=== PATIENT | male | born 1930 | race Caucasian/White ===

== ENCOUNTER 2019-05-06 17:43 | Inpatient (IN) | payer OTHER ==
--- NOTE | 2019-05-06 18:17 | RAD REPORT ---
EXAM DESCRIPTION: RAD - Chest Single View - 05/06/2019 6:09 pm CLINICAL HISTORY: ams Chest pain. COMPARISON: No comparisons FINDINGS: Portable technique limits examination quality. Mild pulmonary edema. The heart is moderately enlarged in size. No displaced fractures. IMPRESSION: Mild CHF.
[2019-05-06] MEDS ORDERED: NA CHLORIDE 0.9% 3,000 ML ONE (18:30)
[2019-05-06 18:57] LABS: Absolute Lymphocytes (CBC) 0.3 K/uL (0.7-4.9); Basophils % 0.1 % (0-1.3); Hematocrit 38.6 % (39.6-49.0); Lymphocytes % 1.8 % (15.3-44.8); MPV 9.5 fL (7.6-11.3); RBC Red Blood Cell Count 4.22 M/uL (4.33-5.43)
[2019-05-06 18:58] LABS: Protime INR 1.09
[2019-05-06 19:20] LABS: Urine Blood TRACE (NEG); Urine Glucose NEGATIVE (NEG); Urine Protein NEGATIVE (NEG)
[2019-05-06 19:20] LABS: Urine Bacteria NONE SEEN /HPF (NONE SEEN); Urine Culture Reflex Order NOT NEEDED; Urine RBC <5 /HPF (NONE SEEN)
--- NOTE | 2019-05-06 19:37 | RAD REPORT ---
EXAM DESCRIPTION: US - Extremity Venous Uni Ltd - 05/06/2019 7:31 pm CLINICAL HISTORY: SWELLING Leg swelling and edema. COMPARISON: <Comparisons> FINDINGS: Right lower extremity venous system was interrogated with Doppler technique. Normal flow, compressibility and augmentation was noted. There is no DVT present. IMPRESSION: No evidence of right lower extremity deep venous thrombosis.
[2019-05-06 19:43] LABS: ALT/SGPT 15 U/L (12-78); AST/SGOT 25 U/L (15-37); Albumin 3.9 g/dL (3.4-5.0); Alkaline Phosphatase 92 U/L (45-117); BUN Blood Urea Nitrogen 11 mg/dL (7-18); Bicarbonate 24 mmol/L (21-32); Bilirubin Direct 0.6 mg/dL (0-0.2); Bilirubin Total 2.2 mg/dL (0.2-1.0); Creatine Phosphokinase 247 U/L (39-308); Glucose Level 109 mg/dL (74-106); Lipase 75 U/L (73-393); Potassium 3.5 mmol/L (3.5-5.1); Troponin (Emerg Dept Use Only) 0.02 ng/mL (0.0-0.045)
[2019-05-06 19:53] LABS: Sodium Level 115 mmol/L (136-145)
--- NOTE | 2019-05-06 20:24 | RAD REPORT ---
EXAM DESCRIPTION: CTAbdomen Pelvis W Contrast - 05/06/2019 8:13 pm CLINICAL HISTORY: Abdominal pain. ABD PAIN COMPARISON: No comparisons TECHNIQUE: Biphasic CT imaging of the abdomen and pelvis was performed with 100 ml non-ionic IV cont rast. All CT scans are performed using dose optimization technique as appropriate and may include automated exposure control or mA/KV adjustment according to patient size. FINDINGS: Small hiatal hernia.Small bilateral pleural effusions. The liver, spleen, pancreas, adrenal glands and kidneys are within normal limits. Small cysts are pre sent in both kidneys. No bowel obstruction, free air, free fluid or abscess. Sigmoid diverticulosis coli. The appendix is n ormal. Bilateral fat containing inguinal hernias. No evidence of significant lymphadenopathy. No suspicious bony findings. Hoffman catheter. IMPRESSION: No acute intra-abdominal or pelvic finding. Sigmoid diverticulosis.
--- NOTE | 2019-05-06 20:49 | ER ---
Nurse's Notes [facility] Name: Bashir Son Age: 88 yrs Sex: Male : 1930 Arrival Date: 05/06/2019 Time: 17:46 Bed 6 Private MD: Diagnosis: Hypo-osmolality and hyponatremia;Altered mental status, unspecified Presentation: 05/06 17:48 Presenting complaint: EMS states: AMS worsening today, possible UTI. Transition of iw care: patient was not received from another setting of care. Onset of symptoms was May 06, 2019. Risk Assessment: Do you want to hurt yourself or someone else? Patient reports no desire to harm self or others. Care prior to arrival: IV initiated. 20 GA, in the left antecubital area, Glucose check: 103. 17:48 Method Of Arrival: EMS: [facility] iw 17:48 Acuity: OFELIA 3 iw 19:15 Initial Sepsis Screen: Does the patient meet any 2 criteria? Altered Mental Status. Yes rr5 Does the patient have a suspected source of infection? No. Patient's initial sepsis screen is negative. Historical: - Allergies: 17:50 No Known Allergies; iw - PMHx: 17:49 BPH; Glaucoma; iw - Immunization history:: Adult Immunizations unknown. - Social history:: Smoking status: unknown. - Ebola Screening: : Patient negative for fever greater than or equal to 101.5 degrees Fahrenheit, and additional compatible Ebola Virus Disease symptoms Patient denies exposure to infectious person Patient denies travel to an Ebola-affected area in the 21 days before illness onset No symptoms or risks identified at this time. Screenin:34 Abuse screen: Denies threats or abuse. Denies injuries from another. Nutritional ss screening: No deficits noted. Tuberculosis screening: No symptoms or risk factors identified. Fall Risk IV access (20 points). Assessment: 18:00 General: Appears uncomfortable, Behavior is restless, uncooperative. Pain: Unable to iw use pain scale. Patient appears restless. Neuro: Level of Consciousness is awake, alert, Oriented to none Moves all extremities. Cardiovascular: Capillary refill < 3 seconds in bilateral fingers Patient's skin is warm and dry. Respiratory: Respiratory effort is even, unlabored, Respiratory pattern is regular, symmetrical. GI: Abdomen is non-distended. Derm: Skin is intact, is thin. Musculoskeletal: Range of motion: intact in all extremities. 19:15 General: Appears in no apparent distress. uncomfortable, Behavior is restless, rr5 uncooperative, tremors noted. patient pulling out contraptions. Pain: Unable to use pain scale. Patient is disoriented. Patient appears restless. Neuro: Level of Consciousness is awake, alert, Oriented to none Moves all extremities. Cardiovascular: Capillary refill < 3 seconds Patient's skin is warm and dry. Respiratory: Airway is patent Respiratory effort is even, unlabored, Respiratory pattern is regular, symmetrical. GI: Abdomen is non-distended. : Urine is clear. EENT: No signs and/or symptoms were reported regarding the EENT system. Derm: Skin is intact, is fragile, is thin. Musculoskeletal: Capillary refill < 3 seconds. 19:25 Reassessment: Patient appears in no apparent distress at this time. ultrasound at rr5 bedside. 20:25 Reassessment: NS fluid bolus discontinue and regulated at 75 ml/hr as ordered by ED rr5 provider. to replace the Na level gradually. 21:30 Reassessment: patient removing the panel monitor electrodes. IV cannula secured. rr5 family member at bedside vital signs taken and recorded. 21:59 Reassessment: patient needs to do CT scan at 2330H before sending up. as per ED rr5 provider, charge nurse informed. 22:00 Reassessment: Patient appears in no apparent distress at this time. Patient and/or rr5 family updated on plan of care and expected duration. Pain level reassessed. 23:12 Reassessment: Patient came back from CT scan department, awaiting result. cc3 05/07 00:15 Reassessment: ABHIJIT Rahman explained to the patient's family the need for central line cc3 insertion, they agreed and consent form signed by the patient's . 01:00 Reassessment: Patient appears in no apparent distress at this time. vitally stable. rr5 02:05 Reassessment: Patient appears in no apparent distress at this time. No changes from rr5 previously documented assessment. central line inserted by dr. davis aseptically. Vital Signs: 05/06 17:50 BP 155 / 110; Pulse 100; Resp 20 S; Temp 97.9(TE); Pulse Ox 95% on R/A; iw 18:29 Weight 97.52 kg (R); iw 19:17 jp3 19:19 BP 162 / 105; Pulse 99; Resp 22; Temp 98; Pulse Ox 99% ; rr5 20:32 BP 151 / 87; Pulse 100; Resp 22 S; Pulse Ox 94% on R/A; cc3 21:00 BP 167 / 67; Pulse 80; Resp 20 S; Pulse Ox 96% on R/A; cc3 22:00 BP 145 / 85; Pulse 79; Resp 19; Pulse Ox 98% on R/A; rr5 23:34 BP 117 / 91; Pulse 66; Resp 20 S; Pulse Ox 97% on R/A; cc3 10/ 01:10 BP 142 / 95; Pulse 79; Resp 18; Pulse Ox 99% ; rr5 02:10 BP 140 / 100; Pulse 69; Resp 20; Temp 98.1; Pulse Ox 99% ; rr5 05/06 19:17 BLOOD Sugar was 125 \T\ 1815 jp3 Juan Coma Score: 19:19 Eye Response: spontaneous(4). Verbal Response: confused(4). Motor Response: obeys rr5 commands(6). Total: 14. 20:32 Eye Response: spontaneous(4). Verbal Response: confused(4). Motor Response: localizes rr5 pain(5). Total: 13. 21:00 Eye Response: spontaneous(4). Verbal Response: confused(4). Motor Response: obeys rr5 commands(6). Total: 14. 22:00 Eye Response: spontaneous(4). Verbal Response: confused(4). Motor Response: obeys rr5 commands(6). Total: 14. 23:34 Eye Response: spontaneous(4). Verbal Response: confused(4). Motor Response: obeys rr5 commands(6). Total: 14. /03 01:10 Eye Response: spontaneous(4). Verbal Response: confused(4). Motor Response: localizes rr5 pain(5). Total: 13. 02:10 Eye Response: spontaneous(4). Verbal Response: confused(4). Motor Response: obeys rr5 commands(6). Total: 14. ED Course: 05/06 17:46 Patient arrived in ED. iw 17:49 Triage completed. iw 17:50 Arm band placed on. iw 17:59 [facility] snw 17:59 Slick Friedman MD is Attending Physician. snw 18:00 Patient has correct armband on for positive identification. panel monitor on. Pulse ss ox on. NIBP on. 18:09 Chest Single View XRAY In Process Unspecified. EDMS 18:15 Initial lab(s) drawn, by me, sent to lab. First set of blood cultures drawn. jp3 18:30 Second set of blood cultures drawn by me, Urine collected: Hoffman catheter specimen, jp3 clear, lo colored, Amount Returned: 700mL T\T\S collected, blood band applied to patient. 18:30 Hoffman cath inserted, using sterile technique, 16 Fr., by me, balloon inflated, to jp3 gravity drainage, urine specimen collected. returned lo urine. Patient tolerated well. 18:35 No provider procedures requiring assistance completed. Maintain EMS IV. Dressing ca1 intact. Good blood return noted. Site clean \T\ dry. Gauge \T\ site: G20 LAC. 18:40 Radiology exam delayed due to lab results not completed at this time. (BUN/Creatinine). vm2 19:04 Jagdish Bui, RN is Primary Nurse. rr5 19:13 Patient maintains SpO2 saturation greater than 95% on room air. jp3 19:15 Bed in low position. Call light in reach. Side rails up X 1. Side rails up X2. Warm jp3 blanket given. Pillow given. Verbal reassurance given. 19:31 Radiology exam delayed due to lab results not completed at this time. (BUN/Creatinine). vm2 19:32 US Extremity Venous Unilateral Ltd In Process Unspecified. EDMS 19:43 Radiology exam delayed due to lab results not completed at this time. (BUN/Creatinine). vm2 20:14 CT Abd/Pelvis - IV Contrast Only In Process Unspecified. EDMS 20:14 CT completed. Pt tolerated procedure poorly. Patient moved to CT via stretcher. Patient nj moved back from CT. 20:47 David Harmon DO is Hospitalizing Provider. snw 23:14 CT Head Brain wo Cont: to be done at 2330 In Process Unspecified. EDMS 05/07 02:05 Accessed right femoral catheter [address] davis aseptically using rr5 ultrasound guided. 02:05 Assisted provider with central line placement. Set up central line tray. Triple lumen rr5 line placed in right femoral. Line placed by Edwin Davis MD Placement verified by blood return, Dressed with Tegaderm, Patient tolerated well. Before procedure, did Practitioner(s) obtain informed consent? Patient \T\ family education about procedure, CLABSI prevention and S/S of infection? Yes. Time-out/Briefing performed prior to start of procedure? Yes. Was handwashing/sanitizing done immediately prior to procedure? Yes. Was patient positioned to in a way to prevent air embolism? Yes. Was procedure site sterilized? Yes, with Was the site allowed to dry? Yes. During the procedure, did the Practitioner(s) maintain a sterile field? Yes. Were unused ports clamped during insertion? Yes. Was a 2nd qualified MD obtained after 3 unsuccessful insertion attempts? No. Was blood aspirated from each lumen? Yes. After the procedure, did the Practitioner(s) clean the site and apply a sterile dressing? Yes. 02:50 Patient admitted, IV remains in place. intact, No redness/swelling at site. rr5 Administered Medications: 05/06 18:35 Drug: NS 0.9% (30 ml/kg) 30 ml/kg Route: IV; Rate: bolus; Site: left antecubital; ca1 20:28 Follow up: Response: No adverse reaction; IV Status: Order to discontinue infusion; IV rr5 Intake: 1000ml ; for sodium replacement gradually. IVF decrease to 75ml/hr. 20:33 Drug: NS 0.9% 1000 ml Route: IV; Rate: 75 ml/hr; Site: right forearm; rr5 Intake: 20:28 IV: 1000ml; Total: 1000ml. rr5 Outcome: 20:48 Decision to Hospitalize by Provider. snw 05/07 02:40 Admitted to ICU accompanied by nurse, room 3, with chart, Report called to estrada taylor 02:40 Condition: stable rr5 02:40 Instructed on the need for admit. 02:51 Patient left the ED. rr5 Signatures: Dispatcher [employer] EDMS Lacey Bacon, [employer] WORKER-C [employer] WORKER-Csnw Olinda Tipton RN RN iw Smirch, Shelby, RN RN ss Jordan, Nathan nj McGuire, Victoria vm2 Pisarski, Jacob jp3 Cordel Anushka cc3 Jagdish Bui, RN RN rr5 Theodora Carranza RN RN ca1 Corrections: (The following items were deleted from the chart) 05/06 18:42 18:00 General: Appears uncomfortable, Behavior is restless, uncooperative, [facility] 18:42 18:00 Pain: Unable to use pain scale. Patient appears restless, [facility] 18:42 18:00 Neuro: Level of Consciousness is awake, alert, Oriented to none Moves all iw extremities. 18:42 18:00 Cardiovascular: Capillary refill < 3 seconds in bilateral fingers Patient's skin iw is warm and dry. 18:42 18:00 Respiratory: Respiratory effort is even, unlabored, Respiratory pattern is iw regular, symmetrical, 18: 18:00 GI: Abdomen is non-distended, [facility] 18:42 18:00 Derm: Skin is intact, is thin, [facility] 18:42 18:00 Musculoskeletal: Range of motion: intact in all extremities, iw 19:20 19:15 General: Appears in no apparent distress. uncomfortable, Behavior is restless, rr5 uncooperative, tremors noted.. rr5
--- NOTE | 2019-05-06 20:50 | EDPHYS ---
Physician Documentation [facility] Name: Bashir Son Age: 88 yrs Sex: Male : 1930 Arrival Date: 05/06/2019 Time: 17:46 Bed 6 Private MD: ED Physician Slick Friedman HPI: 05/06 20:50 This 88 yrs old Male presents to ER via EMS with complaints of Altered Mental snw Status. 20:50 The patient presents with agitation, confusion, disorientation. Onset: The snw symptoms/episode began/occurred gradually, 3 day(s) ago, and became worse. Possible causes: Spouse suspects UTI. Associated signs and symptoms: The patient has no apparent associated signs or symptoms. Current symptoms: In the emergency department the patient's symptoms are unchanged from the initial presentation. Patient's baseline: Neuro: alert and fully oriented, Motor: no deficits. The patient has experienced a previous episode, last year. It is unknown whether or not the patient has recently seen a physician. Historical: - Allergies: 17:50 No Known Allergies; iw - PMHx: 17:49 BPH; Glaucoma; iw - Immunization history:: Adult Immunizations unknown. - Social history:: Smoking status: unknown. - Ebola Screening: : Patient negative for fever greater than or equal to 101.5 degrees Fahrenheit, and additional compatible Ebola Virus Disease symptoms Patient denies exposure to infectious person Patient denies travel to an Ebola-affected area in the 21 days before illness onset No symptoms or risks identified at this time. ROS: 20:51 Eyes: Negative for injury, pain, redness, and discharge, ENT: Negative for injury, snw pain, and discharge, Neck: Negative for injury, pain, and swelling, Cardiovascular: Negative for chest pain, palpitations, and edema, Respiratory: Negative for shortness of breath, cough, wheezing, and pleuritic chest pain, Abdomen/GI: Negative for abdominal pain, nausea, vomiting, diarrhea, and constipation, Back: Negative for injury and pain, : Negative for injury, bleeding, discharge, and swelling, MS/Extremity: Negative for injury and deformity, Skin: Negative for injury, rash, and discoloration. 20:51 Constitutional: Positive for AMS. 20:51 Neuro: Positive for altered mental status, dizziness. Exam: 17:55 Head/Face: Normocephalic, atraumatic. Eyes: Pupils equal round and reactive to light, snw extra-ocular motions intact. Lids and lashes normal. Conjunctiva and sclera are non-icteric and not injected. Cornea within normal limits. Periorbital areas with no swelling, redness, or edema. ENT: Nares patent. No nasal discharge, no septal abnormalities noted. Tympanic membranes are normal and external auditory canals are clear. Oropharynx with no redness, swelling, or masses, exudates, or evidence of obstruction, uvula midline. Mucous membranes moist. Neck: Trachea midline, no thyromegaly or masses palpated, and no cervical lymphadenopathy. Supple, full range of motion without nuchal rigidity, or vertebral point tenderness. No Meningismus. Chest/axilla: Normal chest wall appearance and motion. Nontender with no deformity. No lesions are appreciated. Cardiovascular: Regular rate and rhythm with a normal S1 and S2. No gallops, murmurs, or rubs. Normal PMI, no JVD. No pulse deficits. Respiratory: Lungs have equal breath sounds bilaterally, clear to auscultation and percussion. No rales, rhonchi or wheezes noted. No increased work of breathing, no retractions or nasal flaring. 17:55 Back: No spinal tenderness. No costovertebral tenderness. Full range of motion. Skin: Warm, dry with normal turgor. Normal color with no rashes, no lesions, and no evidence of cellulitis. 17:55 Constitutional: The patient appears awake, obese, restless, uncomfortable. 17:55 Abdomen/GI: Inspection: abdomen appears normal, Bowel sounds: normal, Palpation: moderate abdominal tenderness, in the right lower quadrant. 17:55 Musculoskeletal/extremity: Extremities: right lower ext with mild edema, Circulation is intact in all extremities. Sensation intact. 17:55 Neuro: Orientation: Not oriented to person, place, time, situation, Mentation: unable to follow commands, Memory: unable to test, Motor: strength is 5/5 in all extremities, Gait: not tested. seizure activity, is not displayed by the patient. Vital Signs: 17:50 BP 155 / 110; Pulse 100; Resp 20 S; Temp 97.9(TE); Pulse Ox 95% on R/A; iw 18:29 Weight 97.52 kg (R); iw 19:17 jp3 19:19 BP 162 / 105; Pulse 99; Resp 22; Temp 98; Pulse Ox 99% ; rr5 20:32 BP 151 / 87; Pulse 100; Resp 22 S; Pulse Ox 94% on R/A; cc3 21:00 BP 167 / 67; Pulse 80; Resp 20 S; Pulse Ox 96% on R/A; cc3 22:00 BP 145 / 85; Pulse 79; Resp 19; Pulse Ox 98% on R/A; rr5 23:34 BP 117 / 91; Pulse 66; Resp 20 S; Pulse Ox 97% on R/A; cc3 05/07 01:10 BP 142 / 95; Pulse 79; Resp 18; Pulse Ox 99% ; rr5 02:10 BP 140 / 100; Pulse 69; Resp 20; Temp 98.1; Pulse Ox 99% ; rr5 05/06 19:17 BLOOD Sugar was 125 \T\ 1815 jp3 [place] Coma Score: 19:19 Eye Response: spontaneous(4). Verbal Response: confused(4). Motor Response: obeys rr5 commands(6). Total: 14. 20:32 Eye Response: spontaneous(4). Verbal Response: confused(4). Motor Response: localizes rr5 pain(5). Total: 13. 21:00 Eye Response: spontaneous(4). Verbal Response: confused(4). Motor Response: obeys rr5 commands(6). Total: 14. 22:00 Eye Response: spontaneous(4). Verbal Response: confused(4). Motor Response: obeys rr5 commands(6). Total: 14. 23:34 Eye Response: spontaneous(4). Verbal Response: confused(4). Motor Response: obeys rr5 commands(6). Total: 14. 05/07 01:10 Eye Response: spontaneous(4). Verbal Response: confused(4). Motor Response: localizes rr5 pain(5). Total: 13. 02:10 Eye Response: spontaneous(4). Verbal Response: confused(4). Motor Response: obeys rr5 commands(6). Total: 14. MDM: 05/06 18:00 Patient medically screened. snw 20:46 Data reviewed: vital signs, nurses notes. Data interpreted: Pulse oximetry: on room air snw is 99 %. Interpretation: normal. Counseling: I had a detailed discussion with the patient and/or guardian regarding: the historical points, exam findings, and any diagnostic results supporting the discharge/admit diagnosis, the presence of at least one elevated blood pressure reading (>120/80) during this emergency department visit, lab results, radiology results, the need for further work-up and treatment in the hospital. Physician consultation: David Harmon DO was called at 20:47, was contacted at 20:47, regarding admission, to the ICU. 21:49 ED course: unable to CT scan brain until 2330 to allow contrast to clear. snw 05/06 17:59 Order name: T\T\S; Complete Time: 20:20 snw 05/06 17:59 Order name: Basic Metabolic Panel; Complete Time: 20:20 snw 05/06 17:59 Order name: Blood Culture Adult (2) snw 05/06 17:59 Order name: CBC with Diff; Complete Time: 00:07 snw 05/06 17:59 Order name: Ckmb; Complete Time: 20:20 snw 05/06 17:59 Order name: CPK; Complete Time: 20:20 snw 05/06 17:59 Order name: Lactate; Complete Time: 19:45 snw 05/06 17:59 Order name: LFT's; Complete Time: 20:20 snw 05/06 17:59 Order name: Lipase; Complete Time: 20:20 snw 05/06 17:59 Order name: Procalcitonin; Complete Time: 20:20 snw 05/06 17:59 Order name: Protime (+inr); Complete Time: 19:22 snw 05/06 17:59 Order name: Ptt, Activated; Complete Time: 19:22 snw 05/06 17:59 Order name: Troponin (emerg Dept Use Only); Complete Time: 20:20 snw 05/06 17:59 Order name: Urine Microscopic Only; Complete Time: 19:22 snw 05/06 17:59 Order name: Flu; Complete Time: 19:32 snw 05/06 18:51 Order name: Urine Dipstick--Ancillary (enter results); Complete Time: 19:22 gm 05/06 19:25 Order name: NOVA; Complete Time: 20:23 rr5 05/06 20:18 Order name: ABO/RH no charge; Complete Time: 21:00 EDMS 05/06 20:46 Order name: Urine Osmolality; Complete Time: 23:23 snw 05/06 20:46 Order name: Urine Sodium Random; Complete Time: 22:10 snw 05/06 20:46 Order name: Osmolality, Serum; Complete Time: 22:28 snw 05/06 20:46 Order name: Chem 7; Complete Time: 22:37 snw 05/06 20:46 Order name: BNP; Complete Time: 22:37 snw 05/06 22:10 Order name: Cortisol EDMS 05/06 22:10 Order name: UR POTASSIUM EDMS 05/06 22:10 Order name: UR SODIUM EDMS 05/06 22:10 Order name: Osmolality, Urine EDMS 05/06 22:10 Order name: Thyroid Stimulating Hormone EDMS 05/06 22:10 Order name: Urinalysis EDMS 05/06 22:10 Order name: Uric Acid EDMS 05/06 17:59 Order name: FSBS; Complete Time: 19:12 snw 05/06 17:59 Order name: Cath; Complete Time: 18:49 snw 05/06 17:59 Order name: Chest Single View XRAY; Complete Time: 18:21 snw 05/06 17:59 Order name: Accucheck; Complete Time: 18:49 snw 05/06 17:59 Order name: Cardiac monitoring; Complete Time: 19:11 snw 05/06 17:59 Order name: EKG - Nurse/Tech; Complete Time: 19:11 snw 05/06 17:59 Order name: IV Saline Lock - Large Bore; Complete Time: 18:35 snw 05/06 18:39 Order name: US Extremity Venous Unilateral Ltd; Complete Time: 19:45 snw 05/06 18:39 Order name: CT Abd/Pelvis - IV Contrast Only; Complete Time: 20:29 snw 05/06 22:02 Order name: CT Head Brain wo Cont: to be done at 2330 snw 05/06 22:10 Order name: Magnesium EDMS 05/06 22:10 Order name: Magnesium EDMS 05/06 22:10 Order name: Magnesium EDMS 05/06 22:10 Order name: Magnesium EDMS 05/06 22:10 Order name: Magnesium EDMS 05/06 22:10 Order name: Magnesium EDMS 05/06 22:10 Order name: Osmolality, Serum EDMS 05/06 22:10 Order name: Osmolality, Serum EDMS 05/06 22:10 Order name: Osmolality, Serum EDMS 05/06 22:10 Order name: Osmolality, Serum EDMS 05/06 22:10 Order name: Osmolality, Serum EDMS 05/06 22:10 Order name: Osmolality, Serum EDMS 05/06 22:10 Order name: Renal Panel EDMS 05/06 22:10 Order name: Renal Panel EDMS 05/06 22:10 Order name: Renal Panel EDMS 05/06 22:10 Order name: Renal Panel EDMS 05/06 22:10 Order name: Renal Panel EDMS 05/06 22:10 Order name: Renal Panel EDMS 05/06 23:16 Order name: Manual Differential; Complete Time: 00:07 EDMS 05/07 00:39 Order name: Social Service Consult EDMS 05/06 17:59 Order name: Labs collected and sent; Complete Time: 18:35 snw 05/06 17:59 Order name: O2 Per Protocol; Complete Time: 18:35 snw 05/06 17:59 Order name: O2 Sat Monitoring; Complete Time: 18:35 snw 05/06 17:59 Order name: Urine Dipstick-Ancillary (obtain specimen); Complete Time: 18:49 snw 05/06 18:03 Order name: Hoffman: criticore; Complete Time: 18:49 snw Administered Medications: 18:35 Drug: NS 0.9% (30 ml/kg) 30 ml/kg Route: IV; Rate: bolus; Site: left antecubital; ca1 20:28 Follow up: Response: No adverse reaction; IV Status: Order to discontinue infusion; IV rr5 Intake: 1000ml ; for sodium replacement gradually. IVF decrease to 75ml/hr. 20:33 Drug: NS 0.9% 1000 ml Route: IV; Rate: 75 ml/hr; Site: right forearm; rr5 Disposition: 05/06/19 20:48 Hospitalization ordered by David Harmon for Inpatient Admission. Preliminary diagnosis are Hypo-osmolality and hyponatremia, Altered mental status, unspecified. - Bed requested for Intensive Care Unit. - Status is Inpatient Admission. rr5 - Condition is Fair. - Problem is an acute exacerbation. - Symptoms are unchanged. UTI on Admission? No Addendum: 05/09/2019 07:02 Co-signature as Attending Physician, Slick Friedman MD. r n Signatures: Dispatcher [employer] EDLacey Mast, [facility] MANAGER-[employer] Olinda Tipton, RN RN Slick Friedman MD MD rn Garcia, Cindy, RN RN cg Jagdish Bui, RN RN rr5 Acob, Theodora RN RN ca1 Corrections: (The following items were deleted from the chart) 05/07 00:51 05/06 20:48 Hospitalization Ordered by [facility] for Inpatient Admission. cg Preliminary diagnosis is Hypo-osmolality and hyponatremia; Altered mental status, unspecified. Bed requested for Intensive Care Unit. Status is Inpatient Admission. Condition is Fair. Problem is an acute exacerbation. Symptoms are unchanged. UTI on Admission? No. snw 05/07 02:51 00:51 05/06/2019 20:48 [facility]r5 [facility]. Preliminary diagnosis is Hypo-osmolality and hyponatremia; Altered mental status, unspecified. Bed requested for Intensive Care Unit. Status is Inpatient Admission. Condition is Fair. Problem is an acute exacerbation. Symptoms are unchanged. UTI on Admission? No. cg
[2019-05-06 22:25] LABS: BUN Blood Urea Nitrogen 11 mg/dL (7-18); Bicarbonate 22 mmol/L (21-32); Glucose Level 103 mg/dL (74-106); NT PRO-BNP 4980 pg/mL (<450); Potassium 3.3 mmol/L (3.5-5.1)
[2019-05-06 22:35] LABS: Sodium Level 116 mmol/L (136-145)
[2019-05-07] LABS: Blood Morphology Comment NOT SEEN (NOT SEEN); Platelet Estimate ADEQ
--- NOTE | 2019-05-07 00:30 | P.HP ---
Certification for Inpatient Patient admitted to: Inpatient With expected LOS: >2 Midnights Patient will require the following post-hospital care: [facility] Practitioner: I am a practitioner with admitting privileges, knowledge of patient current condition, hospital course, and medical plan of care. Services: Services provided to patient in accordance with Admission requirements found in Title 42 Section 412.3 of the Code of Federal Regulations Patient History Date of Service: 05/07/19 Primary Care Provider: Dr. Beckett Reason for admission: Altered mental status History of Present Illness: 88-year-old male presented to the emergency room with altered mental status. Patient with history of depression and chronic pain. Most of the information came from the and daughter. Both present at bedside. The daughter reports that the patient had been hospitalized in [facility] last [place] for hyponatremia. The patient was there for about a week and then went to rehab. Since that time, patient has been declining in health. Increase memory loss and behavioral disturbances have been noted. Patient was to follow up with his PCP but he did not. Patient takes Celexa and gabapentin. Daughter reports that the patient is likely not taking his medication. Daughter also reports that the patient requires more help than normal. Patient has home health. Daughter has been considering long-term placement for the patient and . Most recently over the last 3 days patient has had altered mental status changes. Patient does not appear appropriate or talking. No mention of fever, chills, chest pain or shortness of breath. No diarrhea noted. No other information provided. In the ER patient was evaluated. Patient found to be severely hypernatremic with a sodium of 115. Potassium 3.5, chloride 79, BUN of 11, creatinine 0.78 with a GFR of 79. Glucose 109. White count 16.3, hemoglobin 13.6. Platelet count of 287. Troponin unremarkable. Pro calcitonin unremarkable. Total bilirubin 2.2 with a direct bilirubin of 0.6. Urinalysis unremarkable. Chest x -ray showed mild volume overload. CT abdomen was unremarkable. CT head also unremarkable. Patient was given IV fluid in the emergency room. Patient admitted to ICU. When I saw the patient in the ER, patient appeared with altered mental status state. Patient not appropriate her able to provide history. Patient appeared stable. AFib noted on telemetry. Rate controlled. Blood pressure stable. Family is unsure were if AFib is chronic. As mentioned above patient has poor memory. Daughter concerned that he is not eating appropriately. does not report any excessive drinking. Allergies No Known Allergies Allergy (Unverified 09/15/17 23:14) Home medications list reviewed: Yes - Past Medical/Surgical History Diabetic: No -: Depression -: Chronic pain -: Cholecystectomy Psychosocial/ Personal History: Patient , lives at home. is the main caregiver. - Family History Family History: Reviewed- Non-Contributory - Social History Smoking Status: Never smoker Alcohol use: No CD- Drugs: No Caffeine use: No Place of Residence: Home Review of Systems General: Weakness, As per HPI Eyes: Unremarkable ENT: Unremarkable Respiratory: Unremarkable Cardiovascular: Unremarkable Gastrointestinal: Unremarkable Genitourinary: Unremarkable Musculoskeletal: Unremarkable Integumentary: Unremarkable Neurological: Weakness, Numbness, Confusion, As per HPI Lymphatics: Unremarkable Physical Examination - Physical Exam General: Alert, In no apparent distress, Demented (Patient appears demented), Confused, Other (Very little cooperation noted with instruction) HEENT: Atraumatic, Normocephalic, Other (Dry mucous membranes) Neck: Supple Respiratory: Clear to auscultation bilaterally, Normal air movement Cardiovascular: Irregular heart rate/rhythm (Atrial fibrillation, rate controlled) Gastrointestinal: Normal bowel sounds, Soft and benign, Non-distended, No tenderness, No masses, No rebound, No guarding Musculoskeletal: No contractures, No erythema, No tenderness, No warmth Integumentary: No tenderness/swelling, No erythema, No warmth, No cyanosis Neurological: Normal strength at 5/5 x4 extr, Normal tone, Dementia - Studies Laboratory Data (last 24 hrs) 05/06/19 21:35: Sodium 116 L*, Potassium 3.3 L, BUN 11, Creatinine 0.68, Glucose 103 05/06/19 18:00: PT 12.8 H, INR 1.09, APTT 29.0 05/06/19 18:00: WBC 16.3 H, Hgb 13.6, Hct 38.6 L, Plt Count 287 05/06/19 18:00: Sodium 115 L*, Potassium 3.5, BUN 11, Creatinine 0.78, Glucose 109 H, Total Bilirubin 2.2 H, AST 25, ALT 15, Alkaline Phosphatase 92, Lipase 75 Microbiology Data (last 24 hrs): 05/06/19 18:12 Nasopharnyx Influenza Type A Antigen Screen - Final 05/06/19 18:12 Nasopharnyx Influenza Type B Antigen Screen - Final Assessment and Plan - Plan Impression Altered mental status likely related to severe hyponatremia, etiology unknown Atrial fibrillation, likely chronic Depression Suspect underlying vascular dementia Leukocytosis Plan: Altered mental status likely related to severe hyponatremia, etiology unknown: Patient admitted to ICU for further evaluation and treatment. Spoke in detail with nephrology. Will start 3% solution and monitor electrolytes closely. Nephrology to monitor and adjust IV fluids. Will need to adjust hyponatremia slowly. Central line to be placed. Will order echocardiogram, carotid Doppler , stroke protocol MRI to further evaluate. Will need to rule out CVA. Will also consult cardiology and neurology for further evaluation and recommendation. Patient with AFib likely chronic with suspected underlying vascular dementia. Will start Lovenox at 1 milligram/kilograms subcu twice daily. Will provide IV metoprolol to maintain blood pressure and heart rate control. Will continue to reassess and monitor closely. Daytime hospitalist will continue his care. Anticipate discharge within the next 3-5 days with clinical improvement. Patient will likely require skilled placement then likely long-term placement. Advanced directives address in detail. Patient is do not resuscitate. Atrial fibrillation, likely chronic: Suspect AFib as chronic. Will start Lovenox at 1 milligram/kilogram subcu twice daily. Cardiology consulted. Obtain echocardiogram. Will provide metoprolol IV for blood pressure and heart rate control. Await further recommendation from Cardiology. Depression: Will hold Celexa at this time. Suspect underlying vascular dementia: Will obtain echocardiogram, carotid Doppler and stroke protocol MRI to further evaluate. Neurology consulted to further address. Will provide folic acid. Will check fasting lipid panel. Will check tsh. Continue to monitor closely. Leukocytosis: Etiology unknown. Urinalysis unremarkable. No evidence of pneumonia noted unremarkable. Pro calcitonin negative. Will continue to monitor closely. Will obtain blood cultures. No need for antibiotic therapy at this time. Discharge Plan: Half-Way Plan to discharge in: Greater than 2 days - Advance Directives Does patient have a Living Will: No Does patient have a Durable POA for Healthcare: No - Code Status/Comfort Care Code Status Assessed: Yes (Patient is do not resuscitate) Time Spent Managing Pts Care (In Minutes): 65
[2019-05-07] MEDS ORDERED: METOPROLOL TARTRATE 5 MG/5 ML INJ IV PRN (02:25)
[2019-05-07] MEDS ORDERED: ONDANSETRON 4 MG/2 ML VIAL IV PRN (02:25)
[2019-05-07] MEDS ORDERED: ACETAMINOPHEN 500 MG TAB PO PRN (02:25)
[2019-05-07] MEDS ORDERED: ACETAMINOPHEN 650MG/RECT SUPP RECT PRN (02:25)
[2019-05-07] MEDS ORDERED: NA CHLORIDE 3% 500 ML IV SCH (03:41)
[2019-05-07 05:58] LABS: Urine Appearance CLEAR; Urine Bilirubin NEGATIVE (NEG); Urine Blood 3+ (NEG); Urine Color YELLOW; Urine Glucose NEGATIVE (NEG); Urine Protein TRACE (NEG); Urine Specific Gravity 1.025 (1.005-1.030)
[2019-05-07 06:00] LABS: Urine Microscopic Reflex ORDER UMIC
[2019-05-07 06:07] LABS: Albumin 3.4 g/dL (3.4-5.0); BUN Blood Urea Nitrogen 10 mg/dL (7-18); Bicarbonate 21 mmol/L (21-32); Glucose Level 102 mg/dL (74-106); Phosphorus 2.1 mg/dL (2.5-4.9); Potassium 3.1 mmol/L (3.5-5.1); Sodium Level 118 mmol/L (136-145); Troponin I 0.05 ng/mL (0.0-0.045); Uric Acid 2.3 mg/dL (3.5-7.2)
[2019-05-07 06:09] LABS: Urine Bacteria <20 /HPF (NONE SEEN); Urine Culture Reflex Order REFLEXED
[2019-05-07] MEDS ORDERED: ZIPRASIDONE MESYLA 20 MG/VIAL IM PRN (06:25)
[2019-05-07] MEDS ORDERED: WATER FOR INJ,STERILE 10 ML IM PRN (06:25)
[2019-05-07] MEDS ORDERED: LORazepam 2 MG/ML VIAL ONE (06:28)
[2019-05-07] MEDS: LORazepam 2 MG/ML VIAL IV PRN ×2 (06:30→15:06)
[2019-05-07 06:44] LABS: CKMB Creatine Kinase MB 27.9 ng/mL (0.3-3.6)
[2019-05-07 06:46] LABS: Magnesium 1.4 mg/dL (1.8-2.4)
[2019-05-07] MEDS ORDERED: NA CHLORIDE 0.9% 1,000 ML IV SCH ×3 (07:00→20:00)
[2019-05-07] MEDS ORDERED: POTASSIUM CL 40 MEQ in NA CHLORIDE 0.9% 500 ML IV SCH (07:00)
[2019-05-07] MEDS: KCL 20 MEQ/100 mL IVPB 20 MEQ/100 ML BAG IV SCH ×4 (07:20→14:22)
[2019-05-07] MEDS ORDERED: MAGNESIUM 50% 3 GM in NA CHLORIDE 0.9% 100 ML IV ONE (07:30)
[2019-05-07] MEDS: FOLIC ACID 1 MG TABLET PO SCH (07:36)
[2019-05-07] MEDS: ASPIRIN EC 81 MG TAB PO SCH (07:36)
[2019-05-07] MEDS ORDERED: INFLUENZA VACCINE (for 3y+) 0.5 ML DOSE IMVAC ONE (08:00)
[2019-05-07] MEDS ORDERED: PNEUMOCOCCAL VACCINE 0.5 ML IMVAC ONE (08:00)
[2019-05-07 08:15] LABS: ALT/SGPT 19 U/L (12-78); AST/SGOT 41 U/L (15-37); Albumin 3.2 g/dL (3.4-5.0); Alkaline Phosphatase 80 U/L (45-117); BUN Blood Urea Nitrogen 11 mg/dL (7-18); Bicarbonate 23 mmol/L (21-32); Bilirubin Total 2.3 mg/dL (0.2-1.0); Glucose Level 95 mg/dL (74-106); Potassium 3.3 mmol/L (3.5-5.1); Protein, Total 6.1 g/dL (6.4-8.2); Sodium Level 120 mmol/L (136-145)
[2019-05-07 08:23] LABS: Urine Appearance CLEAR; Urine Blood 2+ (NEG); Urine Color YELLOW; Urine Glucose NEGATIVE (NEG); Urine Protein TRACE (NEG)
[2019-05-07 08:37] LABS: Urine Bilirubin 1+ (NEG); Urine Microscopic Reflex ORDER UMIC
[2019-05-07 08:38] LABS: Urine Bacteria NONE SEEN /HPF (NONE SEEN); Urine Mucus LIGHT /HPF (NONE SEEN); Urine RBC <5 /HPF (NONE SEEN)
[2019-05-07 08:40] LABS: Urine Culture Reflex Order NOT NEEDED
--- NOTE | 2019-05-07 08:57 | EKG ---
Test Date: 2019-05-06 Test Time: 18:57:14 [employer] Consultant: POWER MEASUREMENT RESULTS: Intervals: Rate: 88 SD: QRSD: 100 QT: 356 QTc: 430 [place]: P: SD: QRS: 37 T: 7 INTERPRETIVE STATEMENTS: Atrial fibrillation with premature ventricular or aberrantly conducted complexes Possible Anterior infarct, age undetermined Abnormal ECG Compared to ECG 09/15/2017 21:28:29 Ventricular premature complex(es) now present Sinus rhythm no longer present First degree AV block no longer present Myocardial infarct finding still present Electronically Signed On 05-07-19 08:57:22 CDT by Daron Sanchez
[2019-05-07] MEDS ORDERED: FUROSEMIDE 20 MG/ 2ML VIAL IV SCH (09:00)
[2019-05-07] MEDS: PIPER/TAZO/NS 3.375gm 3.375 GM/100 ML BAG IVPB SCH ×2 (09:31→19:11)
[2019-05-07] MEDS: ENOXAPARIN 100 MG/ML SYR SQ SCH ×2 (09:32→20:11)
--- NOTE | 2019-05-07 09:41 | RAD REPORT ---
EXAM DESCRIPTION: RAD - Chest Single View - 05/07/2019 9:36 am CLINICAL HISTORY: follow up CXR-Possible CHF Chest pain. COMPARISON: Chest Single View dated 05/06/2019 FINDINGS: Portable technique limits examination quality. Airspace opacities are present in right lung base, compatible with pneumonia. The heart is moderately enlarged in size. No displaced fractures. IMPRESSION: Right lower lobe pneumonia.
--- NOTE | 2019-05-07 10:57 | RAD REPORT ---
EXAM DESCRIPTION: US - CP - 05/07/2019 10:44 am CLINICAL HISTORY: Atrial fibrillation, transient alteration of awareness, stroke-like symptoms COMPARISON: None. TECHNIQUE: Real-time sonographic evaluation of both carotid systems was performed. Taylor scale and Do ppler interrogation were performed with waveform tracing bilaterally. FINDINGS: Exam is substantially limited. Patient was combative and uncooperative at this time. Promi nent calcified plaquing changes are present at the right carotid bulb. Calcified plaquing changes pre sent at the left carotid bulb as well. Patient had significant elevation of the right internal caroti d artery velocity measuring 283 cm/second. Left mid ICA value on the left was 133 cm/second. ICA/ CCA ratios are abnormal measuring 3.4 on the right and 1.8 on the left. Vertebral arteries cannot be adequately visualized. Velocity values and ratios were recorded and are retained in the patient's imaging records. IMPRESSION: Exam has substantial limitation due to limited ability of the patient to cooperate with the examination at this time. Bilateral bulb region calcified plaquing changes are present. Although limited, findings indicate gre ater than 80% stenosis on the right and 60-80% stenosis on the left. Exam can be repeated at a time when the patient can cooperate with the examination to determine if th e significant bilateral stenosis findings persist.
--- NOTE | 2019-05-07 11:01 | RAD REPORT ---
EXAM DESCRIPTION: Head Brain Wo Cont CLINICAL HISTORY: AMS TECHNIQUE: Multiple axial CT images of the brain were performed followed by sagittal and coronal rec onstructed images. The CT study is performed according to ALARA (as low as reasonably achievable) or ALARA/IMAGE GENTLY, with automatic adjustment of mA and/or kV according to patient size. Performed on: 05/06/2019 at 11:10 PM COMPARISON: None. FINDINGS: There is no evidence of mass, acute mass effect or midline shift. There are no acute extra -axial fluid collections. There is no evidence of acute intracranial hemorrhage. The cerebral sulci and ventricles are prominent consistent with age-related volume loss. There are scattered areas of decreased attenuation within the subcortical and periventricular white m atter most likely due to mild chronic microangiopathy. There is no significant mucosal thickening of the paranasal sinuses. There appears to be trace opacification of the inferior mastoid air cells bilaterally. The orbital contents are grossly unremarkable. No acute osseous abnormalities are identified. No focal soft tissue abnormalities are identified. IMPRESSION: 1. There is no evidence of acute intracranial pathology. Electronically signed by: Amalia Godwin DO 05/06/2019 11:28 PM CDT Due to temporary technical issues with the PACS/Fluency reporting system, reports are being signed by the in house radiologist as a courtesy to ensure prompt reporting. The interpreting radiologist is f sarahly responsible for the content of the report.
--- NOTE | 2019-05-07 12:37 | CON ---
Reason For Consult: Atrial fibrillation. History Of Present Illness: An 88-year-old male. We do not have any useful detailed previous histor y on Mr. Son. He is obtunded to deeply lethargic and we have some information from the daughter a bout his mental status, about whether he has had atrial fib before or not. We are completely unaware . The patient presents to the hospital. The daughter sent him here. The patient and his live in a home by themselves. No other caregivers and both are extremely demented. In the emergency room , he was found to have severe hypo-osmolarity and his sodium is 118. He is in atrial fibrillation. His heart rate is in the 70s and 80s for the most part. His blood pressure is normal. We do not hav e any home medications that we know him to be taking. In fact, if there are any medicines found at [facility], I would suspect that he probably had not been taking them. We do not know the reason for his de mentia. We do not have any old records in that regard. Apparently, he has been extremely demented s august and now is obtunded. Physical Examination: General: 6 feet 1 inch, 209 pounds. Lungs: Clear. Heart: Irregularly irregular. Vital Signs: The heart rate is 89 at the time of the exam, blood pressure 120/93, O2 saturation of 9 5% on room air. Imaging: chest x-ray reveals mild CHF. I personally suspect it is a poor inspiratory effort rather than CHF or pulmonary edema. His EKG showed sinus rhythm with first-degree AV block, but now it look s like it is more likely to be AFib. Assessment And Plan: I will recommend that if we do not attempt to reestablish sinus rhythm or give him antiarrhythmic drugs, he can be anticoagulated while at here, but since he has an official do not resuscitate status, age 88, bedridden, I would not recommend outpatient anticoagulation. I suspect he will end up being in the prison for the rest of his life. I do not think he could conceivab ly be expected to live at home without extensive nursing care around the clock. VITO Voice ID: [id number] Report ID: [id number]
--- NOTE | 2019-05-07 12:41 | ECHO ---
HEIGHT: 6 ft 1 in WEIGHT: 209 lb 8 oz DATE OF STUDY: 05/07/[address]: David Harmon DO 2-DIMENSIONAL: YES M.MODE: YES DOPPLER: YES COLOR FLOW: YES TDS: YES PORTABLE: YES DEFINITY: BUBBLE STUDY: DIAGNOSIS: AMS, HYPONATREMIA, AFIB, SUSPECT CHF. CARDIAC HISTORY: CATHERIZATION: NO SURGERY: NO PROSTHETIC VALVE: NO PACEMAKER: NO MEASUREMENTS (cm) DIASTOLIC (NORMALS) SYSTOLIC (NORMALS) IVSd 1.0 (0.6-1.2) LA Diam 3.1 (1.9-4.0) LVEF 60-65% LVIDd 4.7 (3.5-5.7) LVIDs 2.4 (2.0-3.5) %FS 49% LVPWd 1.1 (0.6-1.2) Ao Diam 3.5 (2.0-3.7) 2 DIMENSIONAL ASSESSMENT: RIGHT ATRIUM: NORMAL LEFT ATRIUM: NORMAL RIGHT VENTRICLE: NORMAL LEFT VENTRICLE: NORMAL TRICUSPID VALVE: NORMAL MITRAL VALVE: NORMAL PULMONIC VALVE: NORMAL AORTIC VALVE: SCLEROSIS PERICARDIAL EFFUSION: NONE AORTIC ROOT: NORMAL LEFT VENTRICULAR WALL MOTION: NORMAL DOPPLER/COLOR FLOW: NO AORTIC STENOSIS OR AORTIC REGURGITATION. COMMENTS: NORMAL LEFT VENTRICULAR EJECTION FRACTION. AORTIC SCLEROSIS WITH NO AORTIC STENOSIS OR AORTIC REGURGITATION. AFIB HEART RATE 100-116 BEATS PER MINUTE. TECHNOLOGIST: ALEX KIDD
[2019-05-07] MEDS ORDERED: D5 0.45 NS 1,000 ML IV SCH (13:00)
[2019-05-07 13:17] LABS: Urine Appearance CLEAR; Urine Bilirubin NEGATIVE (NEG); Urine Blood 3+ (NEG); Urine Color YELLOW; Urine Glucose NEGATIVE (NEG); Urine Protein NEGATIVE (NEG); Urine Specific Gravity 1.015 (1.005-1.030); Urine pH 5.5 (5.0-7.0)
[2019-05-07 13:20] LABS: Urine Microscopic Reflex ORDER UMIC
[2019-05-07 13:22] LABS: Potassium 3.4 mmol/L (3.5-5.1); Troponin I 0.06 ng/mL (0.0-0.045)
[2019-05-07 13:23] LABS: CKMB Creatine Kinase MB 24.7 ng/mL (0.3-3.6)
[2019-05-07 13:28] LABS: Urine Bacteria <20 /HPF (NONE SEEN); Urine Culture Reflex Order NOT NEEDED; Urine Mucus LIGHT /HPF (NONE SEEN); Urine RBC >50 /HPF (NONE SEEN)
--- NOTE | 2019-05-07 14:37 | PN ---
Date of Progress Note: 05/07/2019 Subjective: Patient seen and examined. Chart reviewed and case discussed with RN. Patient still very much confused, not following any commands, somewhat agitated. Medications: Medication list reviewed. Code Status: Do not resuscitate. Physical Examination: Vital Signs: Temperature 98.5, heart rate 89, blood pressure 120/93, respirations 17, O2 95% on room air. General: Asleep, but arousable, confused, agitated elderly male, ill appearing. CV: S1, S2. Irregularly irregular. Peripheral pulses weak. Respiratory: Diminished breath sounds. No wheezing or stridor. Gastrointestinal: Abdomen is soft, nondistended. Positive bowel sounds. Extremities: No clubbing, cyanosis, or edema. Neurologic: Moves all 4 extremities. No focal neurological deficit. Does not follow commands, confused. Speech is normal. Laboratory Data: Sodium 120, potassium 3.3, chloride 87, CO2 of 23, BUN 11, creatinine 0.71, glucose 95, calcium 8, total bilirubin 2.3. CK-MB 27.9, CK is 819, troponin 0.05. Albumin 3.2. Lactate is now down to 1.6. Blood cultures pending. Influenza screen negative. Chest x-ray personally reviewed shows right lower lobe pneumonia. Carotid artery ultrasound: Bilateral bulb region calcified plaquing changes are present. Findings indicate greater than 80% stenosis on the right and 60% to 80% stenosis on the left. Recommend repeat exam once more cooperative. Head CT scan shows no acute evidence of intracranial pathology. Venous Doppler shows no DVT. Abdomen and pelvis CT scan shows no acute intraabdominal or pelvic finding. Sigmoid diverticulosis is present. Assessment And Plan: 88-year-old male with: 1. Acute metabolic encephalopathy related to severe hyponatremia. Sodium is improving slowly. We will continue to monitor. Head CT is negative for any acute issues. MRI of the brain is pending to rule out cerebrovascular accident. 2. Severe hyponatremia. We will continue with 3% saline. Nephrology on-board , managing IV fluids. Sodium is slightly better. We will correct slowly to avoid central pontine myelinolysis. We will continue to monitor. 3. Atrial fibrillation, likely chronic. Continue with Lovenox, therapeutic dose. Echocardiogram is pending at this time. Continue with rate control. 4. Aspiration pneumonia. Patient had vomited while being transferred to the ICU. We will start on IV antibiotics and monitor O2 saturation. 5. Major depressive disorder, in remission. We will hold Celexa at this time. 6. Dementia, likely vascular. 7. Acute cystitis w/out hematuria. Patient has 2+ leukocyte esterase, 20 to 50 wbc's. We will continue with IV antibiotics. 8. Hypokalemia. We will replace and monitor. 9. Hypomagnesemia. We will replace and monitor. Blood cultures are pending. Influenza screen is negative. We will continue to monitor in the ICU setting. /NAVIN Voice ID: [id number] Report ID: [id number] ALDA
[2019-05-07] MEDS: HALOPERIDOL LACT 5 MG/ML INJ IV PRN ×2 (15:54→21:59)
[2019-05-07] MEDS: DIPHENHYDRAMINE 50 MG/ML VIAL IV PRN ×2 (15:55→22:30)
[2019-05-07 18:38] LABS: Potassium 3.7 mmol/L (3.5-5.1)
[2019-05-07] MEDS ORDERED: MORPHINE 2 MG/ML SYR IV PRN (19:16)
[2019-05-07] MEDS ORDERED: NA CHLORIDE 0.9% 1,000 ML ONE (20:10)
[2019-05-07] MEDS: ATORVASTATIN 40 MG TAB PO SCH (20:12)
[2019-05-07 23:52] LABS: Urine Appearance CLEAR; Urine Bilirubin NEGATIVE (NEG); Urine Blood 3+ (NEG); Urine Color YELLOW; Urine Glucose NEGATIVE (NEG); Urine Protein TRACE (NEG)
[2019-05-07 23:56] LABS: Urine Microscopic Reflex ORDER UMIC
[2019-05-08 00:02] LABS: Bilirubin Total 1.7 mg/dL (0.2-1.0); Potassium 3.5 mmol/L (3.5-5.1); Protein, Total 5.5 g/dL (6.4-8.2)
[2019-05-08 00:13] LABS: Urine Bacteria <20 /HPF (NONE SEEN); Urine Culture Reflex Order REFLEXED
[2019-05-08] MEDS: PIPER/TAZO/NS 3.375gm 3.375 GM/100 ML BAG IVPB SCH ×3 (00:23→16:42)
--- NOTE | 2019-05-08 00:25 | P.PN ---
Subjective Date of Service: 05/08/19 Primary Care Provider: Dr. Beckett Chief Complaint: Altered mental status Subjective: Other (Patient had some mild hemopytosis. Vital signs stable. Patient more alert. Patient not in any respiratory distress.) Physical Examination - Vital Signs Temperature: 99.3 F Blood Pressure: 111/55 Pulse: 95 Respirations: 18 Pulse Ox (%): 93 - Physical Exam General: Alert, Confused, Other (Patient confused but more alert.) HEENT: Atraumatic Neck: Supple Respiratory: Crackles/rales (To the right base) Cardiovascular: Irregular heart rate/rhythm (Rate controlled) Gastrointestinal: Normal bowel sounds, Soft and benign, Non-distended, No tenderness, No masses, No rebound, No guarding Musculoskeletal: No tenderness, No warmth Integumentary: No erythema, No warmth, No cyanosis Neurological: Normal speech, Normal strength at 5/5 x4 extr, Normal tone, Other (Still confusion noted underlying dementia) - Studies Microbiology Data (last 24 hrs): 05/06/19 18:12 Nasopharnyx Influenza Type A Antigen Screen - Final 05/06/19 18:12 Nasopharnyx Influenza Type B Antigen Screen - Final Medications List Reviewed: Yes Assessment & Plan Discharge Plan: Senior Living Plan to discharge in: Greater than 2 days Physician Review Additional Text: Impression Acute metabolic encephalopathy likely related to severe hyponatremia, etiology unknown Atrial fibrillation, likely chronic Right lower lobe pneumonia likely aspiration along with hemoptysis UTI Depression Suspect underlying vascular dementia Hypokalemia Hypomagnesia Plan: Acute metabolic encephalopathy likely related to severe hyponatremia, etiology unknown: Patient more alert but still confused. Sodium improving. Nephrology continues to adjust IV fluids. Once the patient is more stable will continue with stroke protocol MRI to rule out CVA. Patient likely with underlying dementia. Cardiology has evaluated patient. Will anticoagulate patient for AFib in the hospital. No chronic anti coagulation therapy at discharge. Patient also being treated for UTI and right lower lobe pneumonia likely aspiration. Patient with hemoptysis tonight. Will send culture results. Continue IV antibiotic therapy. Will consult pulmonology to further evaluate. Will check hemoglobin and hematocrit. If hemoglobin low may need to hold anti coagulation. Still waiting to evaluate swallowing. Hospitalist to continue to address multiple issues. Atrial fibrillation, likely chronic: This is likely chronic. Continue Lovenox at 1 milligram/kilogram subcu twice daily. May need to hold Lovenox if hemoglobin has dropped especially in light of hemoptysis. Cardiology recommends no chronic anti coagulation therapy at discharge. Right lower lobe pneumonia likely aspiration along with hemoptysis: Continue IV antibiotic therapy. Send sputum for culture. Will check hemoglobin and hematocrit. May need to hold Lovenox. Consult pulmonology to further evaluate. UTI: Continue IV antibiotic therapy. Await culture results. Depression: Continue to address medication. Suspect underlying vascular dementia: Patient to have stroke protocol MRI once stable. Neurology consulted to further address. Continue folic acid. Hypokalemia, hypomagnesia: Continued replacement protocol. Time Spent Managing Pts Care (In Minutes): 55
[2019-05-08 00:54] LABS: Hematocrit 32.6 % (39.6-49.0)
[2019-05-08] MEDS ORDERED: FUROSEMIDE 20 MG/ 2ML VIAL IV ONE (00:56)
[2019-05-08] MEDS ORDERED: NA CHLORIDE 0.9% 1,000 ML IV SCH ×2 (01:00→14:00)
[2019-05-08] MEDS ORDERED: ZIPRASIDONE MESYLA 20 MG/VIAL IM PRN (01:35)
[2019-05-08] MEDS ORDERED: ZIPRASIDONE MESYLA 20 MG/VIAL IM ONE (01:39)
[2019-05-08] MEDS ORDERED: LORazepam 2 MG/ML VIAL ONE (01:54)
[2019-05-08] MEDS: LORazepam 2 MG/ML VIAL IV PRN ×2 (02:00→12:15)
[2019-05-08 05:36] LABS: Absolute Lymphocytes (CBC) 0.4 K/uL (0.7-4.9); Basophils % 0.4 % (0-1.3); Hematocrit 33.7 % (39.6-49.0); Lymphocytes % 3.7 % (15.3-44.8); MPV 8.9 fL (7.6-11.3); RBC Red Blood Cell Count 3.68 M/uL (4.33-5.43)
[2019-05-08 05:48] LABS: Urine Appearance CLEAR; Urine Bilirubin NEGATIVE (NEG); Urine Blood 3+ (NEG); Urine Color YELLOW; Urine Glucose NEGATIVE (NEG); Urine Protein NEGATIVE (NEG); Urine Urobilinogen 0.2 mg/dL (0.2-1.0)
[2019-05-08 05:52] LABS: Urine Microscopic Reflex ORDER UMIC
[2019-05-08 06:01] LABS: Magnesium 1.9 mg/dL (1.8-2.4); Phosphorus 1.9 mg/dL (2.5-4.9); Potassium 3.1 mmol/L (3.5-5.1)
[2019-05-08] MEDS: KCL 20 MEQ/100 mL IVPB 20 MEQ/100 ML BAG IV SCH ×4 (06:29→18:11)
[2019-05-08 06:36] LABS: Urine Culture Reflex Order NOT NEEDED
[2019-05-08 06:38] LABS: Urine Bacteria <20 /HPF (NONE SEEN); Urine RBC 20-50 /HPF (NONE SEEN)
[2019-05-08] MEDS ORDERED: SODIUM CHLORIDE 1 GM TAB PO SCH (08:00)
[2019-05-08] MEDS: HALOPERIDOL LACT 5 MG/ML INJ IV PRN ×2 (08:35→14:07)
[2019-05-08] MEDS: FOLIC ACID 1 MG TABLET PO SCH (09:00)
[2019-05-08] MEDS: ASPIRIN EC 81 MG TAB PO SCH (09:00)
[2019-05-08] MEDS ORDERED: FUROSEMIDE 20 MG TABLET PO SCH (09:00)
[2019-05-08 09:07] LABS: Protime INR 1.19
--- NOTE | 2019-05-08 09:19 | P.CNS ---
Date of Consult: 05/08/19 Reason for Consult: Hemoptysis Primary Care Provider: Dr. Beckett Chief Complaint: Altered mental status and hemoptysis History of Present Illness: Patient is 88 years of age admitted with altered mental status and atrial fibrillation patient developed hemoptysis apparently was started on anticoagulants he was also severely hypernatremic patient is unresponsive agitated problems with dementia and behavioral problems compliant with medication condition has worsened over the past 3 days no evidence of sepsis he was found to be severely hypernatremic hypokalemic possibility of right lower lobe pneumonia Allergies No Known Allergies Allergy (Unverified 09/15/17 23:14) Home Medications: NK [No Home Meds] 05/07/19 - Past Medical/Surgical History Diabetic: No -: Depression -: Chronic pain -: BPH -: glaucoma -: hyponatremia (07/2018) -: declining memory -: Cholecystectomy Psychosocial/ Personal History: Patient , lives at home. is the main caregiver. - Family History Father Notes: of "old age" Mother Medical History: Stroke - Social History Alcohol use: No CD- Drugs: No Caffeine use: Yes Place of Residence: Home Review of Systems is unable to be obtained Physical Examination Temp Pulse Resp BP Pulse Ox 98.4 F 75 23 H 113/64 95 05/08/19 04:00 05/08/19 08:00 05/08/19 08:00 05/08/19 08:00 05/08/19 08:00 General: Unresponsive Respiratory: Clear to auscultation bilaterally Cardiovascular: No edema Gastrointestinal: Normal bowel sounds, Soft and benign Musculoskeletal: No clubbing, No swelling Integumentary: No rashes, No breakdown Conclusions/Impression: Patient is 88 years of age admitted with altered mental status ears dementia also has hemoptysis hyponatremia is improving he was severely hypernatremic hypokalemic CBC unremarkable PT INR normal patient has a right lower lobe infiltrate vital signs stable patient is on Zosyn avoid anticoagulants is currently DNR DT scan of the chest is pending Dc Lovenox patient has normal left ventricular function. His sodium did improve with IV fluid continue with IV fluids avoid diuretic CT of the head is negative
--- NOTE | 2019-05-08 10:31 | P.PN ---
Date of Service: 05/08/19 Pt seen and examined. Still having moderate amounts of hemoptysis. CT scan chest ordered now and coagulation studies. Spoke w medical record consultant regarding possible bronch - await CT results. Pt may have mass causing bleeding and SIADH. Pt is DNR. Will update to family
[2019-05-08 10:58] LABS: Arterial Blood Carboxyhemoglob 1.3 % (0-1.5); Blood Gas Oxyhemoglobin 92.5 % (94-97); Blood O2 Saturation 94.3 % (92-98.5)
--- NOTE | 2019-05-08 12:24 | P.PN ---
Subjective Date of Service: 05/08/19 Primary Care Provider: Dr. Beckett Chief Complaint: Altered mental status and hemoptysis Subjective: Worsening Pt admitted for AMS , found to have hyponatremia today lethargic , have episode of hemoptysis sodium slightly improving need goal of care discussion Physical Examination - Vital Signs Temperature: 97.6 F Blood Pressure: 135/74 Pulse: 78 Respirations: 20 Pulse Ox (%): 95 - Physical Exam General: Moderate distress, Other (lethargic ) HEENT: Atraumatic Neck: Supple, Without JVD or thyroid abnormality Respiratory: Diminished, Other (tachypneic ) Cardiovascular: No edema, Regular rate/rhythm, Normal S1 S2, No gallops, No rubs , No murmurs Musculoskeletal: No swelling Integumentary: No rashes - Studies Medications List Reviewed: Yes Assessment And Plan - Plan Hyponatremia likely SIADH NPO now cont IVF replace K hypokalemia and hypomagnesemia replace prn hemoptysis could be due to lung malignancy in view of hyponatremia poor prognosis AMS head ct -ve likely multifactorial UTI on Abx poor prognosis
--- NOTE | 2019-05-08 13:36 | RAD REPORT ---
EXAM DESCRIPTION: CT THORAX W/OUT CONTRAST CLINICAL HISTORY: Pneumonia COMPARISON: Chest examination May 07, 2019 TECHNIQUE: Axial 5 mm thick images of the chest were obtained without contrast. This exam was performed according to our departmental dose-optimization program, which includes automated exposure control, adjustment of the mA and/or kV according to patient size and/or use of iterative reconstruction technique. FINDINGS: Left upper lobe is clear. Patchy interstitial and alveolar opacification present in the posterior gutter of the left lower lobe where there is also a small pleural effusion. Slight pleural thickening is present and this pleural fluid is potentially loculated. A small right pleural effusion is also present also showing findings of possible loculation. Right middle lobe and right upper lobe are clear. There is alveolar opacification in the right lower lobe consistent with the pneumonia history. Debris is present in the bronchus intermedius. No endobronchial lesions or filling defects otherwise noted. No pneumothorax. No pleural based mass. No pericardial thickening or effusion. Vascular assessment is limited in the absence of contrast. Ascending thoracic aorta is dilated at 4.8 x 4.8 cm. Aortic arch is 3.2 cm in diameter. Mid descending thoracic aorta is 3.2 cm in diameter. Minimal aortic calcification is present. No displaced calcifications. Dense granulomatous calcifications are present in the sub carinal region and in the right side mediastinum. The patient has a few additional non-specific mediastinal and hilar lymph nodes that are non-calcified. Bony degenerative changes are present. No acute bone finding. No chest wall mass or abnormal axillary lymphadenopathy. IMPRESSION: 1. Right lower lobe pneumonia matching the chest examination. Right lower lobe findings are progressive from the May 06, 2019 CT abdomen and pelvis study. 2. Minimal patchy pneumonia in the posterior gutter left lower lobe. 3. Minimal bilateral pleural effusions are present both showing changes suspicious for developing or existing loculation. 4. Aneurysmal dilatation of the ascending thoracic aorta at 4.8 cm in diameter. Aortic arch and descending thoracic aorta are prominent. Assessment is limited in the absence of IV contrast.
[2019-05-08 14:16] LABS: Potassium 3.4 mmol/L (3.5-5.1)
[2019-05-08 16:41] LABS: Urine Appearance CLOUDY; Urine Blood 3+ (NEG); Urine Color DK YELLOW; Urine Glucose NEGATIVE (NEG); Urine Protein 1+ (NEG); Urine Specific Gravity 1.025 (1.005-1.030); Urine pH 5.5 (5.0-7.0)
[2019-05-08 17:24] LABS: Urine Bilirubin NEGATIVE (NEG); Urine Microscopic Reflex ORDER UMIC
[2019-05-08 17:26] LABS: Absolute Lymphocytes (CBC) 0.1 K/uL (0.7-4.9); Basophils % 0.2 % (0-1.3); Hematocrit 35.4 % (39.6-49.0); Lymphocytes % 0.8 % (15.3-44.8); MPV 8.9 fL (7.6-11.3); RBC Red Blood Cell Count 3.78 M/uL (4.33-5.43)
[2019-05-08 17:27] LABS: Urine Amorphous Sediment 2+ /HPF (NONE SEEN); Urine Bacteria <20 /HPF (NONE SEEN); Urine Culture Reflex Order NOT NEEDED; Urine Mucus 3+ /HPF (NONE SEEN); Urine RBC >50 /HPF (NONE SEEN)
[2019-05-08 17:47] LABS: Albumin 2.9 g/dL (3.4-5.0); Bilirubin Total 0.9 mg/dL (0.2-1.0); Potassium 3.6 mmol/L (3.5-5.1); Protein, Total 5.8 g/dL (6.4-8.2)
[2019-05-08 17:51] LABS: Blood Morphology Comment NOT SEEN (NOT SEEN); Platelet Estimate ADEQ; Urine White Blood Cell Casts OK
--- NOTE | 2019-05-08 19:01 | CON ---
Date of Consultation: 05/07/2019 Reason For Consultation: Hyponatremia, electrolyte imbalance. History Of Present Illness: All the information has been obtained from the record as the patient obt unded. This is an 88-year-old gentleman with significant past medical history of depression, chronic pain. Apparently, patient was admitted back in July to [facility] with hyponatremia. At eder t time, patient was treated recovered, then transferred to [facility]. Patient did not follow up w ith his primary, did not take his medication since then and apparently also did not follow up on the lab gradually. Patient is starting decline with altered mental status. Because of the worsening in his condition, patient was brought to the emergency room. Upon presentation to the emergency room, s odium was down to 115 with normal kidney function. Because of the altered mental status, patient was started on 3% sodium, start improving gradually from 6 o'clock to 7 o'clock, almost 12 hours. Patie nt tries 5 point. Patient denied any nausea, any vomiting. No fever or chills. Past Medical History: Depression, hyponatremia, chronic pain. Social History: None obtainable. Allergies: NO KNOWN DRUG ALLERGIES. Past Surgical History: Cholecystectomy. Family History: None obtainable. Review of Systems: None obtainable. Physical Examination: Vital Signs: When I saw the patient blood pressure of 129/85, pulse of 88. Patient had urine output of 1150. Chest: Clear to auscultation. Heart: S1, S2. Regular. Systolic murmur. Abdomen: Soft, nontender. Extremity: No edema. Neuro: Patient obtunded, sleepy. Lab Data: Yesterday upon admission at 6 o'clock in the evening, sodium 115, potassium 3.5, bicarb 24 , BUN 11, creatinine 0.7, calcium 8.4. Repeated lab data today at 7 o'clock, sodium 120, potassium 3 .3, bicarb 23, BUN 11, creatinine 0.7, magnesium 1.4, phos 2.1, uric acid 2.3. CK was elevated, CK-M B 24, troponin was negative. CK of 831. Cortisol 32. TSH 3.3. Urinalysis; specific gravity of 1.0 15. Sodium 85, drop to 11; potassium of 42, dropped to 36. Urine positive for urine infection. Current Medications: Zosyn 3.375 t.i.d., Lovenox, atorvastatin, metoprolol, lorazepam, Geodon, folic acid. Assessment And Plan: 1.Hyponatremia, look to me SIADH supported with low uric acid, high sodium in the urine. I going st art the patient with appropriate rise over the last 12 hours. I going to continue the patient on nor mal saline at 125 per hour and we will repeat the lab in 4 hours and we will follow up. 2.Hypokalemia. We will supplement. 3.Hypomagnesemia. We will supplement. 4.Rhabdomyolysis. Continue hydration. No kidney injury. 5.Urinary tract infection. Follow up culture. I agree with Cali for the time being. REGINA Voice ID: [id number] Report ID: [id number]
[2019-05-08] MEDS: ATORVASTATIN 40 MG TAB PO SCH (20:40)
[2019-05-09] MEDS: PIPER/TAZO/NS 3.375gm 3.375 GM/100 ML BAG IVPB SCH ×2 (01:12→09:00)
[2019-05-09 05:17] LABS: Magnesium 2.2 mg/dL (1.8-2.4); Phosphorus 5.8 mg/dL (2.5-4.9); Potassium 4.3 mmol/L (3.5-5.1)
[2019-05-09 05:38] VITALS: BMI 27.8
--- NOTE | 2019-05-09 06:03 | P.PN ---
Subjective Date of Service: 05/09/19 Primary Care Provider: Dr. Beckett Chief Complaint: Altered mental status and hemoptysis Subjective: Other (Condition has declined. Poor urinary output Overnite. No significant response to pain. Nurses report family wants patient to be DNR. Family has declined BiPAP as well for the patient.) Physical Examination - Vital Signs Temperature: 97.6 F Blood Pressure: 96/51 Pulse: 83 Respirations: 22 Pulse Ox (%): 100 - Physical Exam General: Other (Patient obtunded. No were good response to pain.) HEENT: Atraumatic Neck: Supple Respiratory: Diminished (Diminished bilaterally), Other (Poor inspiration and expiration.) Cardiovascular: Normal pulses, Regular rate/rhythm Gastrointestinal: Normal bowel sounds, Soft and benign, Non-distended Musculoskeletal: No tenderness, No warmth Integumentary: Tenderness/swelling (Lower extremity edema noted) - Studies Medications List Reviewed: Yes Assessment & Plan Discharge Plan: Home Plan to discharge in: Greater than 2 days Physician Review Additional Text: Impression Acute metabolic encephalopathy likely related to severe hyponatremia, etiology unknown Atrial fibrillation, likely chronic Right lower lobe pneumonia likely aspiration along with hemoptysis, possible underlying lung mass UTI Acute renal failure Depression Suspect underlying vascular dementia Hypokalemia Hypomagnesia Plan: Acute metabolic encephalopathy likely related to severe hyponatremia, etiology unknown: Patient less alert today. Urinary output poor. Now no response to significant pain. Family has refused BiPAP for patient. Family continues to keep the patient DNR. Lovenox was held due to from hemoptysis yesterday. CT scan done yesterday of chest to further evaluate pneumonia, results pending. Anticipate patient to continue to decline. Will discuss with daytime hospitalist about hospice for the patient. Patient likely not a good candidate for bronchoscopy. Anticipate further decline of patient. Will need to prepare family for hospice Atrial fibrillation, likely chronic: This is likely chronic. Lovenox was held due to her hemoptysis. Right lower lobe pneumonia likely aspiration along with hemoptysis, possible underlying lung mass: Continue IV antibiotic therapy. CT chest results pending. Possible underlying mass. Patient would not be a good candidate for biopsy or bronchoscopy. UTI: Continue IV antibiotic therapy. Await culture results. Acute renal failure: Renal function has declined. Poor urinary output noted. Depression: Continue to address medication. Suspect underlying vascular dementia: Patient to have stroke protocol MRI once stable. Neurology consulted to further address. Continue folic acid. Hypokalemia, hypomagnesia: Continued replacement protocol. Time Spent Managing Pts Care (In Minutes): 55
[2019-05-09 08:36] VITALS: TEMP 97.3
[2019-05-09 08:59] VITALS: O2SAT 68
[2019-05-09] MEDS: FOLIC ACID 1 MG TABLET PO SCH (09:00)
[2019-05-09] MEDS ORDERED: FUROSEMIDE 20 MG/ 2ML VIAL IV SCH (09:00)
[2019-05-09] MEDS: ASPIRIN EC 81 MG TAB PO SCH (09:00)
[2019-05-09 09:50] VITALS: BP 42/27
--- NOTE | 2019-05-09 11:32 | P.PN ---
Date of Service: 05/09/19 Pt seen and examined. Patient continues to decline. Unresponsive. Family does not want any heroic measures. Apneic breathing noted. Patient likely will not survive. Pt is DNR. Will update to family. addendum: Met with family, they understand his is imminent.
--- NOTE | 2019-05-10 04:32 | DS ---
Date of Discharge: 05/09/2019 Consultants: 1.Dr. Doe and Sera with Nephrology. 2.Dr. Carreno with Pulmonology. 3.Dr. Sanchez with Cardiology. Admitting Diagnoses: 1.Acute metabolic encephalopathy. 2.Severe hyponatremia. 3.Atrial fibrillation, likely chronic, newly diagnosed. 4.Depression. 5.Underlying vascular dementia. 6.Leukocytosis. Discharge Diagnoses: 1.Acute metabolic encephalopathy related to severe hyponatremia. 2.Severe hyponatremia. 3.Atrial fibrillation, likely chronic. 4.Aspiration pneumonia. 5.Acute hemoptysis. 6.Possible underlying lung mass. 7.Major depressive disorder. 8.Dementia, likely vascular. 9.Acute cystitis without hematuria. 10.Hypokalemia. 11.Hypomagnesemia. 12.Acute kidney injury. 13.Acute respiratory failure with hypoxia. Hospital Course: Patient is an 88-year-old male with past medical history of depression, chronic paulina n, and likely underlying atrial fibrillation which has not been diagnosed previously as well as vascu lar dementia, who comes in for altered mental status. Patient was recently hospitalized in [place] for hyponatremia, was in rehab and has been declining in health for the past several months to almost a year with increased memory loss and behavioral disturbances. Patient was found to be severely hyp onatremic with a sodium of 115. He was started on 3% saline. Nephrology was consulted. Patient's s odium improved. It was corrected slowly as to avoid central pontine myelinolysis. CT scan of the ab domen was unremarkable as well as CT scan of the head due to the atrial fibrillation that was found i n the ER, although thought to be chronic. Patient was started on anticoagulation. Echocardiogram wa s also obtained, which showed EF of 60% to 65% and Cardiology was consulted. Patient while coming up to the floor, seemed to have an aspiration event. Patient was started on IV antibiotics for aspirat ion type pneumonia. Patient did have some decrease in his mental status, had worsening respiratory s tatus. Patient also had subsequent development of hemoptysis. Pulmonology was consulted. Patient h ad large amounts of bright red blood being coughed up, which he likely also aspirated. Patient was a do not resuscitate, therefore, he was not intubated. Family were aware of the situation, his living will and according to his wishes, he did not wish to be on a ventilator and did not want any heroic measures. Family also did not want the patient to be on BiPAP. Patient continued to decline. Pulmo nology did not recommend any bronchoscopy or biopsy. CT scan of the chest was also done showed aspir ation pneumonia. Official study still pending due to delay in lead advisor. However, verbal report was received from the radiologist. Patient also had worsening in his kidney function. Patient star elvia to become apneic. He was in respiratory failure. He was hypoxic. Family, however, did not wish to pursue any further invasive measurements. They were then okay with care and comfort measures and the patient quickly passed after becoming apneic and was at 9:37 a.m. Total time spent with patient was 45 minutes. VALE Voice ID: [id number] Report ID: [id number]
== END 2019-05-09 09:37 | disposition expired | DRG 643 ==
LOC: ER 17:43 → 3RD-ICU 05-07 02:23
PROVIDERS: ADMIT Family Medicine; ATTEND Family Medicine
DX: E22.2 Syndrome of inappropriate secretion of antidiuretic hormone (principal); G93.41 Metabolic encephalopathy; J69.0 Pneumonitis due to inhalation of food and vomit; J96.01 Acute respiratory failure with hypoxia; I46.9 Cardiac arrest, cause unspecified; I48.20 Chronic atrial fibrillation, unspecified; N30.00 Acute cystitis without hematuria; M62.82 Rhabdomyolysis; R04.2 Hemoptysis; N17.9 Acute kidney failure, unspecified; F32.9 Major depressive disorder, single episode, unspecified; D72.829 Elevated white blood cell count, unspecified; F01.50 Vascular dementia, unspecified severity, without behavioral disturbance, psychotic disturbance, mood disturbance, and anxiety; E83.42 Hypomagnesemia; E87.6 Hypokalemia; R91.8 Other nonspecific abnormal finding of lung field; Z66 Do not resuscitate
CPT/HCPCS: 36415; 51702; 70450; 71045; 71250; 74177; 80048; 80053; 80061; 80069; 80076; 81003; 81015; 82533; 82550; 82553; 82805; 82962; 83605; 83690; 83735; 83880; 83930; 83935; 84132; 84145; 84300; 84443; 84484; 84550; 85014; 85018; 85025; 85610; 85730; 86850; 86900; 86901; 87040; 87070; 87086; 87088; 87205; 87804; 93005; 93306; 93880; 93971; 96365; 96366; 99285; J1200; J1630; J1650; J1940; J2270; J2405; J2543; J3475; J3486; J7030; J7799; Q9967